=== PATIENT | female | born 2000 | race Caucasian/White ===

== ENCOUNTER 2019-06-21 11:14 | Emergency (ER) | payer MEDICAID, OTHER ==
[~2019-06-21] VITALS: Ht 165.1 cm; Wt 47.2 kg
[2019-06-21 11:31] VITALS: BP 103/64
== END 2019-06-21 11:49 | disposition home or self-care (01) ==
LOC: ED 11:40
DX: Z02.79 Encounter for issue of other medical certificate (principal)
CPT/HCPCS: 99281

== ENCOUNTER 2020-01-28 08:10 | Emergency (ER) | payer SELFPAY ==
[~2020-01-28] VITALS: Ht 167.6 cm; Wt 48.0 kg
--- NOTE | 2020-01-28 08:31 | NUR ---
THIS IS A 19 YEAR OLD FEMALE WHO C/O OF "I WOKE UP WITH MY LIP SWOLLEN. I TOOK BENADRYL ABOUT TWO HOURS AGO. I CAN'T REALLY FEEL ANYTHING ON THE LEFT SIDE OF MY FACE."
[2020-01-28] MEDS ORDERED: DIPHENHYDRAMINE 25 MG CAPSULE ONE (08:45)
--- NOTE | 2020-01-28 08:53 | NUR ---
MEDICATED PER ORDERS, BLANKET GIVEN. PT STATES SHE FEELS "ALITTLE ITCHY", NO RASH NOTED.
[2020-01-28] MEDS ORDERED: DIPHENHYDRAMINE 25 MG CAPSULE PO ONE (09:00)
--- NOTE | 2020-01-28 09:02 | NUR ---
REPORT TO KAREN PETERSON, PLAN OF CARE DISCUSSED.
[2020-01-28 10:25] VITALS: BP 109/68
== END 2020-01-28 10:27 | disposition home or self-care (01) ==
LOC: ED 09:03
DX: T78.3XXA Angioneurotic edema, initial encounter (principal); R22.0 Localized swelling, mass and lump, head; R20.0 Anesthesia of skin
CPT/HCPCS: 99283; J7512; Q0163

== ENCOUNTER 2020-05-01 15:20 | Emergency (ER) | payer OTHER ==
[~2020-05-01] VITALS: Ht 167.6 cm; Wt 48.1 kg
--- NOTE | 2020-05-01 15:25 | NUR ---
pt in us at this time.
[2020-05-01] MEDS ORDERED: HYDROcodone/APAP 5/325 TABLET ONE (15:47)
[2020-05-01] MEDS ORDERED: ONDANSETRON ODT 4 MG ONE (15:47)
[2020-05-01 15:54] LABS: BASOPHILS # (AUTO) 0.04 x10^3/uL (0-0.1); BASOPHILS % (AUTO) 0 % (0-1); EOSINOPHILS # (AUTO) 0.03 x10^3/uL (0-0.4); EOSINOPHILS % (AUTO) 0 % (1-7); LYMPHOCYTES # (AUTO) 1.69 x10^3/uL (1-3.4); LYMPHOCYTES % (AUTO) 13 % (22-44); MD NO; MEAN CORPUSCULAR HEMOGLOBIN 30.6 pg (27.0-34.8); MEAN CORPUSCULAR HGB CONC 32.3 g/dL (32.4-35.8); MEAN PLATELET VOLUME 8.4 fL (7.4-10.4); MONOCYTES # (AUTO) 0.53 x10^3/uL (0.2-0.8); MONOCYTES % (AUTO) 4 % (2-9); NEUTROPHILS # (AUTO) 10.46 x10^3/uL (1.8-6.8); NEUTROPHILS % (AUTO) 82 % (42-75); PLATELET COUNT 222 x10^3/uL (130-400); RED BLOOD COUNT 4.65 x10^6/uL (3.82-5.3); RED CELL DISTRIBUTION WIDTH 13.7 % (9.6-15.2)
[2020-05-01] MEDS ORDERED: ONDANSETRON ODT 4 MG PO ONE (16:00)
[2020-05-01] MEDS ORDERED: HYDROcodone/APAP 5/325 TABLET PO ONE (16:00)
--- NOTE | 2020-05-01 16:10 | NUR ---
pt back to room from us at this time.
--- NOTE | 2020-05-01 16:14 | NUR ---
PT MEDICATED PER EMAR. PT TOLERATED WELL.
--- NOTE | 2020-05-01 16:19 | NUR ---
pt amb to br with steady gait. pt refused straight cath. urine cup given.
--- NOTE | 2020-05-01 16:33 | NUR ---
PT PROVIDED URINE SAMPLE. URINE COLLECTED AND UA SENT AT THIS TIME.
[2020-05-01 16:52] LABS: MICROSCOPIC INDICATED
[2020-05-01 17:07] VITALS: BP 130/89
--- NOTE | 2020-05-01 17:41 | NUR ---
Patient given discharge instructions and they have confirmed that they understand the instructions. Patient ambulatory with steady gait.
== END 2020-05-01 17:42 | disposition home or self-care (01) ==
LOC: ED 16:39
DX: O46.91 Antepartum hemorrhage, unspecified, first trimester (principal); R10.30 Lower abdominal pain, unspecified; R11.2 Nausea with vomiting, unspecified; Z3A.01 Less than 8 weeks gestation of pregnancy
CPT/HCPCS: 36415; 76801; 81001; 84702; 85025; 86901; 87086; 99284; Q0162